=== PATIENT | female | born 1955 | race Two or more races ===

== ENCOUNTER 2019-08-17 07:34 | Inpatient (IN) | payer MEDICARE, MEDICAID ==
[~2019-08-17] VITALS: Ht 162.6 cm; Wt 66.9 kg
[2019-08-17 08:08] LABS: Urine WBC None Seen /hpf (0 - 5)
[2019-08-17 08:15] LABS: Urine Bacteria NONE SEEN /hpf (None Seen); Urine Blood Negative /uL (Negative)
[2019-08-17] MEDS ORDERED: cefTRIAXone 1GM/50ML D5W 50 ML IV ONE (08:15)
[2019-08-17 08:40] LABS: Basophils # (auto) 0.1 uL; Basophils % (auto) 0.8 % (0.0-2.0); Eosinophils # (auto) 0.6 uL; Eosinophils % (auto) 3.7 % (0.0-7.0); Hematocrit 44.3 % (36.0-46.0); Hemoglobin 13.7 g/dL (12.2-16.2); Lymphocytes # (auto) 3.4 uL; Lymphocytes % (auto) 20.2 % (10.0-50.0); Mean Corpuscular Hemoglobin 18.5 pg (28.0-32.0); Mean Corpuscular Volume 59.6 fL (80.0-100.0); Monocytes # (auto) 1.3 uL; Monocytes % (auto) 7.8 % (0.0-12.0); Neutrophils # (auto) 11.6 uL; Neutrophils % (auto) 67.5 % (37.0-80.0); Nucleated Red Blood Cells % 0.1 %; Platelet Count (auto) 392 10^3/uL (140-450); Red Blood Cells 7.43 10^6/uL (4.0-5.20); Red Cell Distribution Width 19.1 % (11.8-14.3); White Blood Cell 17.1 10^3/uL (4.4-10.8)
[2019-08-17 08:46] LABS: Anion Gap 9 (5-15); Calcium 10.2 mg/dL (8.5-10.1); Carbon Dioxide 24 mmol/L (21-32); Chloride 102 mmol/L (98-107); Glucose 111 mg/dL (74-106); Potassium 3.4 mmol/L (3.5-5.1); Sodium 135 mmol/L (136-145)
[2019-08-17 08:51] LABS: Alanine Aminotransferase 25 U/L (13-56); Alkaline Phosphatase 152 U/L (45-117); Aspartate Aminotransferase 15 U/L (15-37); BUN/Creatinine Ratio 10.9; Bilirubin, Total 1.3 mg/dL (0.2-1.0); Blood Urea Nitrogen 7 mg/dL (7-18); GFR African American 121 mL/min; GFR Non-African American 100 mL/min; Total Protein 8.3 g/dL (6.4-8.2)
[2019-08-17 08:55] LABS: Lactic Acid w/Reflex 3.1 mmol/L (0.4-2.0)
[2019-08-17 09:08] LABS: INR < 0.93 (0.9-1.15); Partial Thromboplastin Time 25.1 sec (23.64-32.05)
[2019-08-17] MEDS ORDERED: SODIUM CHLORIDE 0.9% 1,000 ML IV ONE (10:45)
[2019-08-17] MEDS ORDERED: ACETAMINOPHEN 500 MG TAB PO PRN (11:15)
[2019-08-17] MEDS ORDERED: NITROGLYCERIN 0.4 MG SL TAB SL PRN (11:15)
[2019-08-17] MEDS ORDERED: VANCOMYCIN PER PHARMACY 0 MG IV SCH (11:15)
[2019-08-17] MEDS ORDERED: MORPHINE SULF INJ 2 MG/ML SYRINGE 1ML IV PRN ×2 (11:15)
[2019-08-17] MEDS ORDERED: ONDANSETRON HCL 4 MG/2 ML VIAL IV PRN (11:15)
[2019-08-17] MEDS ORDERED: SODIUM CHLORIDE 0.9% 1,000 ML IV SCH (11:15)
[2019-08-17] MEDS: AZITHROMYCIN 500MG/ 250ML 250 ML IV SCH (12:04)
[2019-08-17] MEDS: SOD CHL 0.9%/ KCL 20MEQ 1,000 ML IV SCH ×2 (12:05→21:15)
[2019-08-17 12:50] VITALS: BP 161/83
--- NOTE | 2019-08-17 12:50 | NUR ---
Opening Note Received patient from ER, patient A & O x4, no s/s of distress at this time. Patient c/o pain in the upper back and lungs. Will medicate per orders. Patient on Tele box 60, Sinus Rhythm 95 heart rate. BP is elevated will monitor. Patient oriented to room, hospital, and how to use call light. POC discussed. Bed is in low, locked position call light within reach. Will continue to monitor Q1h and PRN.
[2019-08-17 13:00] VITALS: BP 161/83
[2019-08-17] MEDS ORDERED: ALBU1AER4 IN (13:36)
[2019-08-17] MEDS ORDERED: PRE1T PO (13:36)
[2019-08-17] MEDS: HYDROcodone-ACET 5/325MG TAB PO PRN ×2 (14:06→22:02)
[2019-08-17] MEDS: IPRATROPIUM BROM 0.5 MG/2.5ML INH SOL NEB SCH ×3 (14:31→22:12)
[2019-08-17] MEDS: ALBUTEROL SULF 2.5 MG/0.5ML(0.5%) NEB SOLN NEB SCH ×3 (14:31→22:12)
[2019-08-17 15:38] VITALS: BP 156/80
[2019-08-17] MEDS: VANCOMYCIN 1GM/250ML 250 ML IV SCH (16:31)
--- NOTE | 2019-08-17 19:45 | NUR ---
Opening Shift Note Assumed care of patient, awake and alert. No S/S of distress/SOB or pain. Instructed on POC and to call for assist PRN, will continue to monitor for changes Q1hr and PRN.
[2019-08-17 22:00] VITALS: BP 141/73
[2019-08-17] MEDS: LORazepam 0.5 MG TAB PO PRN (22:01)
[2019-08-17] MEDS: predniSONE 5 MG TAB PO SCH (22:01)
[2019-08-17] MEDS: BUDESONIDE (INHALATION) 0.5 MG/2 ML NEB NEB SCH (22:12)
[2019-08-18 04:47] VITALS: BP 129/81
[2019-08-18 05:58] LABS: Basophils # (auto) 0.1 uL; Basophils % (auto) 0.5 % (0.0-2.0); Eosinophils # (auto) 0.2 uL; Eosinophils % (auto) 1.2 % (0.0-7.0); Hematocrit 38.9 % (36.0-46.0); Lymphocytes % (auto) 14.1 % (10.0-50.0); Mean Corpuscular Hemoglobin 18.2 pg (28.0-32.0); Mean Corpuscular Hgb Conc. 30.9 g/dL (32.0-36.0); Monocytes # (auto) 0.7 uL; Neutrophils % (auto) 79.2 % (37.0-80.0); Platelet Count (auto) 313 10^3/uL (140-450); Red Blood Cells 6.58 10^6/uL (4.0-5.20); Red Cell Distribution Width 18.8 % (11.8-14.3); White Blood Cell 13.9 10^3/uL (4.4-10.8)
[2019-08-18 05:59] LABS: BUN/Creatinine Ratio 15.2; Calcium 9.3 mg/dL (8.5-10.1); Potassium 4.4 mmol/L (3.5-5.1)
[2019-08-18] MEDS: BUDESONIDE (INHALATION) 0.5 MG/2 ML NEB NEB SCH ×2 (06:44→19:39)
[2019-08-18] MEDS: ALBUTEROL SULF 2.5 MG/0.5ML(0.5%) NEB SOLN NEB SCH ×5 (06:44→22:33)
[2019-08-18] MEDS: IPRATROPIUM BROM 0.5 MG/2.5ML INH SOL NEB SCH ×5 (06:44→22:33)
[2019-08-18] MEDS: SOD CHL 0.9%/ KCL 20MEQ 1,000 ML IV SCH ×3 (07:15→22:31)
--- NOTE | 2019-08-18 07:30 | NUR ---
RECEIVED REPORT FROM NIGHT NURSE. PATIENT RESTING IN BED, NO DISTRESS NOTED. BED ALARM ON. WILL CONTINUE TO MONITOR.
[2019-08-18 09:00] VITALS: BP 134/85
[2019-08-18] MEDS: FAMOTIDINE 20 MG TAB PO SCH (09:00)
--- NOTE | 2019-08-18 09:00 | NUR ---
IV INSERTION\ IV INSERTED TO THE RIGHT HAND, 22G. PATENT AND FLUSHING.
[2019-08-18] MEDS: VANCOMYCIN 1GM/250ML 250 ML IV SCH (09:01)
[2019-08-18] MEDS: predniSONE 5 MG TAB PO SCH ×2 (09:01→22:30)
[2019-08-18] MEDS: HYDROcodone-ACET 5/325MG TAB PO PRN ×3 (09:01→22:30)
[2019-08-18] MEDS: LORazepam 0.5 MG TAB PO PRN ×2 (09:01→17:13)
--- NOTE | 2019-08-18 09:02 | NUR ---
IV REMOVAL IV REMOVED FROM RIGHT ARM, CATHETER TIP INTACT, PRESSURE DRESSING APPLIED. SOME SWELLING AND REDNESS NOTED. PATIENT DENIES PAIN. WILL CONTINUE TO MONITOR.
--- NOTE | 2019-08-18 11:00 | NUR ---
WOUND CARE NOTE: WOUND CONSULT ORDERED FOR PATIENT WITH WOUND TO THE LLE. WOUND PHOTO TAKEN UPON ADMIT, BY BEDSIDE NURSE FOR REFERENCE. PATIENT ADMITTED TO [facility] WITH DIAGNOSIS OF SEPSIS. CURRENT TOMAS SCORE IS 20. PATIENT HAS WHAT APPEARS TO BE A MILD CELLULITIS TO THE LLE, WITH A SCABBED CLOSED ULCER. NO OPEN OR DRAINING AREAS NOTED. PERIWOUND IS BRIGHT RED, WITH MILD EDEMA. ELEVATED LEG UP ONTO PILLOWS FOR EDEMA CONTROL. NO DRESSING IS NEEDED AT THIS TIME. IMPLEMENTED SKIN/WOUND CARE PLAN FOR WOUND. NO FURTHER WOUND CARE MONITORING NEEDED AT THIS TIME.
--- NOTE | 2019-08-18 12:20 | NUR ---
Nutrition Consult/assessment Notes please see attached link for complete assessment Est. Needs bw 66KG : [id number] kcal (23-25 kcal/kgBW), 66-72 gms pro (1.0-1.1 gm/kgBW). Will continue to monitor pertinent labs and reassess nutrient need prn Addendum: 08/18/19 at [address] Amended: Links added.
[2019-08-18 13:00] VITALS: BP 108/77
[2019-08-18] MEDS: AZITHROMYCIN 500MG/ 250ML 250 ML IV SCH (13:41)
[2019-08-18] MEDS: cefTRIAXone 1GM/50ML D5W 50 ML IV SCH (13:41)
[2019-08-18] MEDS: CLINDAMYCIN 300MG IV 50 ML IV SCH ×2 (16:26→22:31)
[2019-08-18 17:00] VITALS: BP 119/66
--- NOTE | 2019-08-18 18:00 | NUR ---
ASSUMED CARE REPORT RECEIVED FROM ROMANA CERVANTES. PATIENT IS RESTING ON BED WATCHING TV. NO S/S OF SOB/DISTRESS NOTED. BED SET TO LOWEST POSITION/LOCKED. BEDSIDE RAIL UP X2. CALL LIGHT WITHIN REACH. 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 PT VERBALIZED UNDERSTANDING. WILL CONTINUE TO MONITOR.
--- NOTE | 2019-08-18 18:00 | NUR ---
PATIENT CARE ENDORSED TO ROMANA RIVERA.
[2019-08-18 21:48] VITALS: BP 104/66
--- NOTE | 2019-08-18 22:44 | NUR ---
Respiratory note: TRIED TO APPLY PT TO CPAP AT THIS TIME, PT STATES THEY HAVE TO GET READY FOR BED AT THIS TIME, PT SAYS SHE WILL APPLY CPAP WHEN READY. WILL CONTINUE TO MONITOR
--- NOTE | 2019-08-19 00:45 | NUR ---
M[facility]a [facility] in regards of a stool softer.I inform [facility] that patient stated she needed a stool softener because she had not poop today and she states to be a regular. Hetal Rubin order Liquid Colace 100mg twice a day. Read telephone orders back to verify.Will follow as order.
[2019-08-19 04:59] VITALS: BP 127/84
[2019-08-19 05:15] LABS: Basophils # (auto) 0.1 uL; Basophils % (auto) 0.7 % (0.0-2.0); Eosinophils # (auto) 0.1 uL; Eosinophils % (auto) 1.1 % (0.0-7.0); Hematocrit 36.3 % (36.0-46.0); Hemoglobin 11.5 g/dL (12.2-16.2); Lymphocytes # (auto) 1.5 uL; Mean Corpuscular Hemoglobin 18.6 pg (28.0-32.0); Mean Corpuscular Hgb Conc. 31.7 g/dL (32.0-36.0); Mean Corpuscular Volume 58.6 fL (80.0-100.0); Monocytes # (auto) 0.5 uL; Monocytes % (auto) 4.3 % (0.0-12.0); Neutrophils # (auto) 10.1 uL; Neutrophils % (auto) 81.9 % (37.0-80.0); Nucleated Red Blood Cells % 0.1 %; Platelet Count (auto) 298 10^3/uL (140-450); Red Cell Distribution Width 18.8 % (11.8-14.3); White Blood Cell 12.3 10^3/uL (4.4-10.8)
[2019-08-19 05:26] LABS: Albumin 3.3 g/dL (3.4-5.0); Calcium 9.2 mg/dL (8.5-10.1); Potassium 4.5 mmol/L (3.5-5.1)
[2019-08-19 05:31] LABS: BUN/Creatinine Ratio 17.3; Bilirubin, Total 0.8 mg/dL (0.2-1.0); Total Protein 6.7 g/dL (6.4-8.2)
[2019-08-19] MEDS: CLINDAMYCIN 300MG IV 50 ML IV SCH ×3 (05:53→21:39)
[2019-08-19] MEDS: IPRATROPIUM BROM 0.5 MG/2.5ML INH SOL NEB SCH ×5 (06:44→22:39)
[2019-08-19] MEDS: ALBUTEROL SULF 2.5 MG/0.5ML(0.5%) NEB SOLN NEB SCH ×5 (06:44→22:39)
--- NOTE | 2019-08-19 06:50 | NUR ---
Respiratory note: PT FOUND OFF THE CPAP AND BREATHING COMFORTABLY ON RA. MED NEB TX IS BEING ADMINISTERED ORDERED. NO ADVERSE REACTIONS NOTED.
--- NOTE | 2019-08-19 07:20 | NUR ---
OPENING NOTE ASSUMED CARE OF PT. ALERT AND ORIENTED. NO S/S OF SOB/DISTRESS NOTED. DENIES ANY PAIN. FALL PRECAUTIONS IN PLACE. BED SET TO LOWEST POSITION/LOCKED. BEDSIDE RAILS UP X2. CALL LIGHT WITHIN REACH. INSTRUCTED PT TO CALL FOR ASSISTANCE. UPDATED ON POC. PT VERBALIZED UNDERSTANDING. WILL CONTINUE TO MONITOR Q1HR AND PRN.
[2019-08-19] MEDS: cefTRIAXone 1GM/50ML D5W 50 ML IV SCH (08:53)
[2019-08-19] MEDS: DOCUSATE ORAL LIQUID 100 MG/10 ML UD GT SCH ×2 (08:53→21:39)
[2019-08-19] MEDS: LORazepam 0.5 MG TAB PO PRN ×2 (08:54→21:40)
[2019-08-19] MEDS: FAMOTIDINE 20 MG TAB PO SCH (08:54)
[2019-08-19] MEDS: AZITHROMYCIN 500MG/ 250ML 250 ML IV SCH (08:54)
[2019-08-19] MEDS: predniSONE 5 MG TAB PO SCH ×2 (08:54→22:24)
[2019-08-19 09:00] VITALS: BP 133/77
[2019-08-19] MEDS: BUDESONIDE (INHALATION) 0.5 MG/2 ML NEB NEB SCH ×2 (10:20→18:36)
--- NOTE | 2019-08-19 11:20 | NUR ---
IV insertion IV access obtained, via clean sterile technique by inserting 22 gauge catheter at left wrist after 1 attempt(s). IV secured properly. No trauma to site. Patient tolerated well.
--- NOTE | 2019-08-19 11:30 | NUR ---
IV removal Right hand 22 gauge IV infiltrated. IV cath DC'd with sterile technique, catheter fully intact. Pressure dressing applied to site. Patient tolerated procedure well.
[2019-08-19 13:00] VITALS: BP 133/78
[2019-08-19] MEDS: SOD CHL 0.9%/ KCL 20MEQ 1,000 ML IV SCH ×2 (13:15→23:14)
--- NOTE | 2019-08-19 13:50 | NUR ---
IV insertion IV access obtained, via clean sterile technique by inserting 20 gauge catheter at right wrist after 1 attempt(s). IV secured properly. No trauma to site. Patient tolerated well.
--- NOTE | 2019-08-19 14:00 | NUR ---
IV removal Patient complaining IV site hurt. Left wrist 22 gauge IV cath DC'd with clean sterile technique, catheter fully intact. Pressure dressing applied to site. Patient tolerated well.
[2019-08-19] MEDS: HYDROcodone-ACET 5/325MG TAB PO PRN ×2 (15:51→23:09)
--- NOTE | 2019-08-19 15:55 | NUR ---
MEDICAL RECORDS FAXED MEDICAL RECORD REQUEST FOR WOUND CX TO [facility] Addendum: 08/19/19 at 1643 by Elisabeth Xie RN RE-FAXED MEDICAL RECORDS RELEASE FOR TO [facility] AT , PHONE
[2019-08-19 16:40] VITALS: BP 140/84
--- NOTE | 2019-08-19 16:41 | NUR ---
Midline Placement: Patient educated on need for midline placement. All risks and benefits explained and all questions and concerns addresses prior to procedure. 18g/10cm midline inserted via right basilic vein using Ultrasound. Sterile technique utilized. Blood return obtained from lumen and flushed easily with NS using proper technique. Midline secured with saline lock; biodisc and occlusive dressing applied. Primary RN notified. Midline lot #[id number]
[2019-08-19 21:40] VITALS: BP 131/85
[2019-08-20] MEDS ORDERED: POLYETHYLENE GLYCOL 17 GM PWDR PO ONE (02:00)
[2019-08-20 05:36] VITALS: BP 138/84
[2019-08-20] MEDS: LORazepam 0.5 MG TAB PO PRN (06:37)
[2019-08-20] MEDS: CLINDAMYCIN 300MG IV 50 ML IV SCH (06:38)
[2019-08-20] MEDS: ALBUTEROL SULF 2.5 MG/0.5ML(0.5%) NEB SOLN NEB SCH ×2 (06:52→10:36)
[2019-08-20] MEDS: IPRATROPIUM BROM 0.5 MG/2.5ML INH SOL NEB SCH ×2 (06:52→10:36)
[2019-08-20] MEDS: BUDESONIDE (INHALATION) 0.5 MG/2 ML NEB NEB SCH (06:52)
--- NOTE | 2019-08-20 07:40 | NUR ---
Opening Shift Note Assumed care of patient, awake and alert, sitting up in bed. No S/S of distress/SOB or pain. Instructed on POC and to call for assist PRN, will continue to monitor for changes Q1hr and PRN.
[2019-08-20] MEDS: HYDROcodone-ACET 5/325MG TAB PO PRN (08:06)
[2019-08-20 09:00] VITALS: BP 131/89
[2019-08-20] MEDS: DOCUSATE ORAL LIQUID 100 MG/10 ML UD GT SCH (09:52)
[2019-08-20] MEDS: predniSONE 5 MG TAB PO SCH (09:53)
[2019-08-20] MEDS: FAMOTIDINE 20 MG TAB PO SCH (09:53)
[2019-08-20 09:55] VITALS: BP 138/84
[2019-08-20] MEDS: cefTRIAXone 1GM/50ML D5W 50 ML IV SCH (09:55)
[2019-08-20] MEDS: AZITHROMYCIN 500MG/ 250ML 250 ML IV SCH (09:55)
--- NOTE | 2019-08-20 10:00 | NUR ---
Rounding Patient informed RN that she spoke with her MD on phone and he wanted her to start Levaquin antibiotics due to her culture report. Report was requested 08/19/19 however we have not received fax. Patient will follow up with the MD's office so they can fax information to [facility].
[2019-08-20] MEDS: SOD CHL 0.9%/ KCL 20MEQ 1,000 ML IV SCH (10:10)
--- NOTE | 2019-08-20 10:40 | NUR ---
Fax from [facility] received and placed in chart.
[2019-08-20] MEDS ORDERED: LEVOFLOXACIN 500MG 100 ML IV ONE (11:00)
--- NOTE | 2019-08-20 11:00 | NUR ---
Rounding Dr. Steward at bedside.
[2019-08-20 13:00] VITALS: BP 158/86
--- NOTE | 2019-08-20 14:30 | NUR ---
Discharge instructions given as ordered. Encourage to follow up with PMD as instructed. All questions and concerns addressed. Patient verbalized understanding. Medication reconciliation form completed and copy given to patient. IV removed with catheter intact and pressure dressing applied. Telemetry unit returned to ICU. Patient ambulated to vehicle with all personal belongings. No distress noted at time of departure. Discharge wound photo taken.
== END 2019-08-20 14:30 | disposition home or self-care (01) | DRG 871 ==
LOC: ER 07:37 → TELE 07:38 → TELE-WESTW 12:50
PROVIDERS: ADMIT Nurse Practitioner Acute Care; ATTEND Family Medicine
PROC: 5A09357 Assistance with Respiratory Ventilation, Less than 24 Consecutive Hours, Continuous Positive Airway Pressure (ICD-10-PCS; principal; 2019-08-17)
PROC: 5A09357 Assistance with Respiratory Ventilation, Less than 24 Consecutive Hours, Continuous Positive Airway Pressure (ICD-10-PCS; 2019-08-19)
DX: A41.9 Sepsis, unspecified organism (principal); J96.00 Acute respiratory failure, unspecified whether with hypoxia or hypercapnia; J18.9 Pneumonia, unspecified organism; L03.116 Cellulitis of left lower limb; J45.901 Unspecified asthma with (acute) exacerbation; E87.1 Hypo-osmolality and hyponatremia; Z96.653 Presence of artificial knee joint, bilateral; M19.90 Unspecified osteoarthritis, unspecified site; M06.9 Rheumatoid arthritis, unspecified; J20.9 Acute bronchitis, unspecified; E87.6 Hypokalemia; D56.9 Thalassemia, unspecified
CPT/HCPCS: 36415; 71045; 80048; 80053; 81001; 83605; 83880; 84443; 84484; 85025; 85379; 85610; 85730; 87040; 87070; 87077; 87186; 87205; 87804; 94640; 94660; 96361; 96365; 96367; G0378; J0696; J1956; J3490